=== PATIENT | male | born 1995 | race Caucasian/White ===

== ENCOUNTER 2017-09-05 19:57 | Emergency (ER) | payer BC ==
[~2017-09-05] VITALS: Ht 182.9 cm; Wt 77.3 kg
[~2017-09-05 19:57] MED LIST: CLIN-80 PO; LIDO20SO16 PO
[2017-09-05] MEDS ORDERED: CEPH-571 PO (21:07)
[2017-09-05] MEDS ORDERED: SULF1TAB49 PO (21:07)
[2017-09-05 21:13] VITALS: BP 131/73
== END 2017-09-05 21:14 | disposition home or self-care (01) ==
LOC: ER 19:58
DX: L02.11 Cutaneous abscess of neck (principal); J45.909 Unspecified asthma, uncomplicated; Z88.5 Allergy status to narcotic agent
CPT/HCPCS: 10060; 99283

== ENCOUNTER 2017-11-04 05:08 | Emergency (ER) | payer BC ==
[~2017-11-04] VITALS: Ht 182.9 cm; Wt 77.7 kg
[~2017-11-04 05:08] MED LIST changes: +CEPH-571 PO
[2017-11-04 05:34] LABS: CLARITY,URINE CLEAR (Clear); COLOR,URINE YELLOW (Yellow); GLUCOSE, URINE 250 mg/dl (Neg); KETONES,URINE NEGATIVE (Neg); LEUKOCYTE ESTERASE ,URINE NEGATIVE (Neg); NITRITES, URINE NEGATIVE (Neg); OCCULT BLOOD,URINE NEGATIVE (Neg); PROTEIN,URINE NEGATIVE (Neg); UROBILINOGEN,URINE 0.2 E.U/dL (0.2-1.0)
[2017-11-04 05:37] LABS: UA COLLECTION TYPE CLN CATCH MIDSTREAM
[2017-11-04] MEDS ORDERED: ondansetron 4mg/5ml UD cup PO ONE (06:35)
[2017-11-04] MEDS ORDERED: ONDA4TAB9 SL (06:37)
[2017-11-04] MEDS ORDERED: ondansetron 4mg rapidly disintigrating tab PO ONE (06:45)
[2017-11-04 06:53] VITALS: BP 122/66
== END 2017-11-04 06:55 | disposition home or self-care (01) ==
LOC: ER 05:10
DX: B34.9 Viral infection, unspecified (principal); B08.1 Molluscum contagiosum; J45.909 Unspecified asthma, uncomplicated; Z56.0 Unemployment, unspecified; Z88.5 Allergy status to narcotic agent; Z79.899 Other long term (current) drug therapy
CPT/HCPCS: 81003; 99283

== ENCOUNTER 2021-09-09 18:03 | Emergency (ER) | payer BC, MEDICAID ==
[~2021-09-09] VITALS: Ht 182.9 cm; Wt 83.0 kg
[~2021-09-09 18:03] MED LIST changes: -CLIN-80 PO; +CLIN-97 PO
[2021-09-09 18:20] VITALS: BP 125/76
--- NOTE | 2021-09-09 20:15 | NUR ---
Pt given and understands d/c instructions. Ambulatory with a steady gait. Given a work/school note.
== END 2021-09-09 20:15 | disposition home or self-care (01) ==
LOC: ER 18:03
DX: U07.1 COVID-19 (principal); R05.9 Cough, unspecified; R10.84 Generalized abdominal pain; R11.0 Nausea; R50.9 Fever, unspecified; R19.7 Diarrhea, unspecified; J45.909 Unspecified asthma, uncomplicated; F32.9 Major depressive disorder, single episode, unspecified; F17.200 Nicotine dependence, unspecified, uncomplicated; F12.90 Cannabis use, unspecified, uncomplicated; Z72.89 Other problems related to lifestyle; Z56.0 Unemployment, unspecified; Z88.0 Allergy status to penicillin; Z88.5 Allergy status to narcotic agent; Z79.2 Long term (current) use of antibiotics; Z79.899 Other long term (current) drug therapy
CPT/HCPCS: 87635; 99283; C9803

== ENCOUNTER 2023-03-07 11:29 | Emergency (ER) | payer MEDICAID ==
[~2023-03-07] VITALS: Ht 182.9 cm; Wt 80.0 kg
[2023-03-07 11:39] VITALS: BP 128/83
== END 2023-03-07 15:09 | disposition home or self-care (01) ==
LOC: ER 11:29
DX: H92.01 Otalgia, right ear (principal); H61.21 Impacted cerumen, right ear; F12.90 Cannabis use, unspecified, uncomplicated; Z56.0 Unemployment, unspecified; Z72.89 Other problems related to lifestyle; Z88.0 Allergy status to penicillin; Z88.8 Allergy status to other drugs, medicaments and biological substances; Z91.048 Other nonmedicinal substance allergy status; Z79.2 Long term (current) use of antibiotics; Z79.899 Other long term (current) drug therapy
CPT/HCPCS: 69209; 99282

== ENCOUNTER 2024-03-23 11:17 | Emergency (ER) | payer MEDICAID ==
[~2024-03-23] VITALS: Ht 182.9 cm; Wt 96.2 kg
[2024-03-23] MEDS: ondansetron/PF 4mg/2ml inj IV ONE (12:03)
[2024-03-23] MEDS: normal saline 1000ml 1,000 ML IV ONE (12:04)
[2024-03-23] MEDS: morphine 4 MG/ML inj SYRINge IV ONE ×2 (12:04→14:21)
[2024-03-23] MEDS: ketorolac trometh. 30mg/ml inj. IV ONE (12:29)
[2024-03-23] MEDS ORDERED: iohexol 300mg/ml 100ml inj. ONE (12:43)
[2024-03-23 12:47] LABS: EOSINOPHILS # (AUTO) 0.5 X10'3 (0-0.9); MONOCYTES # (AUTO) 0.6 X10'3 (0-0.9); NEUTROPHILS # (AUTO) 2.9 X10'3 (1.8-7.7); NEUTROPHILS % (AUTO) 48.4 % (42-75); RED BLOOD COUNT 5.14 X10'6 (4.70-6.10); RED CELL DISTRIBUTION WIDTH 12.9 % (11.5-14.5)
[2024-03-23 12:49] LABS: BASOPHILS % (AUTO) 0.6 % (0-1); EOSINOPHILS % (AUTO) 7.7 % (0-6); HEMATOCRIT 46.4 % (42.0-52.0); MEAN CORPUSCULAR HEMOGLOBIN 31.1 PG (27.0-31.0); MEAN CORPUSCULAR HGB CONC 34.4 g/dL (33.0-36.5); MEAN CORPUSCULAR VOLUME 90.2 FL (78-98); MEAN PLATELET VOLUME 8.6 FL (7.4-10.4); MONOCYTES % (AUTO) 10.3 % (2-12); PLATELET COUNT 257 X10'3 (140-440); WHITE BLOOD COUNT 6.1 X10'3 (4.5-11.0)
[2024-03-23 13:06] LABS: ALANINE AMINOTRANSFERASE 52 U/L (12-78); ALBUMIN 4.4 G/DL (3.4-5.0); ALBUMIN/GLOBULIN RATIO 0.9 (1.1-1.5); ALKALINE PHOSPHATASE 72 IU/L (46-116); ANION GAP 10 (8-16); ASPARTATE AMINO TRANSFERASE 22 U/L (10-37); BILIRUBIN,TOTAL 0.6 MG/DL (0.1-1.0); BLOOD UREA NITROGEN 11 MG/DL (7-18); BUN/CREATININE RATIO 10.6 (10.0-20.0); CALCIUM 9.4 MG/DL (8.5-10.1); CHLORIDE 102 MMOL/L (99-107); CREATININE 1.04 MG/DL (0.60-1.10); GLUCOSE 120 MG/DL (70-104); LIPASE 30 U/L (16-77); POTASSIUM 4.6 MMOL/L (3.5-5.1); SODIUM 138 MMOL/L (135-145); TOTAL CARBON DIOXIDE 25.8 MMOL/L (24-32); TOTAL PROTEIN 9.5 G/DL (6.4-8.2); eCRCL 116 ML/MIN; eGFR 85 ML/MIN
[2024-03-23] MEDS ORDERED: ONDA-243 PO (14:46)
[2024-03-23] MEDS ORDERED: HYDR-3965 PO (14:46)
[2024-03-23 15:11] VITALS: BP 106/63; PULSE 54; RESP 16; TEMP 98.8; O2SAT 92
== END 2024-03-23 15:34 | disposition home or self-care (01) ==
LOC: ER 11:17
DX: R10.9 Unspecified abdominal pain (principal); J45.909 Unspecified asthma, uncomplicated; F32.A Depression, unspecified; F12.90 Cannabis use, unspecified, uncomplicated; Z88.0 Allergy status to penicillin; Z88.5 Allergy status to narcotic agent; Z79.2 Long term (current) use of antibiotics; Z79.899 Other long term (current) drug therapy
CPT/HCPCS: 36415; 74177; 80053; 83690; 85025; 96361; 96374; 96375; 96376; 99285; J1885; J2270; J2405; J7030; Q9967

== ENCOUNTER 2024-04-09 12:47 | Emergency (ER) | payer MEDICAID ==
[~2024-04-09] VITALS: Ht 182.9 cm; Wt 95.2 kg
[~2024-04-09 12:47] MED LIST changes: +HYDR-3965 PO; +ONDA-243 PO
[2024-04-09 14:24] LABS: BILIRUBIN,URINE NEGATIVE (Neg); CLARITY,URINE SLIGHTLY CLOUDY (Clear); COLOR,URINE YELLOW (Yellow); GLUCOSE, URINE NEGATIVE (Neg); KETONES,URINE NEGATIVE (Neg); LEUKOCYTE ESTERASE ,URINE NEGATIVE (Neg); NITRITES, URINE NEGATIVE (Neg); OCCULT BLOOD,URINE NEGATIVE (Neg); PROTEIN,URINE TRACE mg/dl (Neg); UROBILINOGEN,URINE 0.2 E.U/dL (0.2-1.0)
[2024-04-09] MEDS: ketorolac trometh 15mg/ml vial 15 MG/ML ML IM ONE (14:35)
[2024-04-09 14:55] LABS: UA COLLECTION TYPE CLN CATCH MIDSTREAM
[2024-04-09 14:56] LABS: MUCUS STRANDS MANY /LPF (Neg); SPERM MANY /HPF (NEGATIVE); SQUAMOUS EPITHELIAL CELL,UR FEW /LPF (FEW)
[2024-04-09 14:57] LABS: BACTERIA,URINE FEW /HPF (Neg); CAL OXALATE CRYSTALS 2+ /HPF (NEGATIVE); RBC,URINE 0-2 /HPF (0-2); WBC,URINE 0-4 /HPF (0-4)
[2024-04-09] MEDS ORDERED: METH-798 PO (16:29)
[2024-04-09] MEDS ORDERED: NAPR-56 PO (16:30)
[2024-04-09 16:45] VITALS: BP 96/61; PULSE 77; RESP 16; TEMP 98.3; O2SAT 98
== END 2024-04-09 16:48 | disposition home or self-care (01) ==
LOC: ER 12:48
DX: N20.9 Urinary calculus, unspecified (principal); R10.9 Unspecified abdominal pain; J45.909 Unspecified asthma, uncomplicated; F32.A Depression, unspecified; F12.90 Cannabis use, unspecified, uncomplicated; Z88.0 Allergy status to penicillin; Z88.5 Allergy status to narcotic agent; Z79.2 Long term (current) use of antibiotics
CPT/HCPCS: 74176; 81001; 96372; 99285; J1885